=== PATIENT | male | born 1970 | race Two or more races ===

== ENCOUNTER 2017-07-13 02:10 | Emergency (ER) | payer SELFPAY ==
[~2017-07-13] VITALS: Ht 177.8 cm; Wt 68.2 kg
[2017-07-13 02:16] VITALS: BP 118/84
[2017-07-13] MEDS ORDERED: LIDOCAINE 1%, 20ML ONE (02:19)
[2017-07-13] MEDS ORDERED: DIPH,PERTUSS(ACELL),TET VAC/PF 0.5 ML IM-VACC ONE ×3 (02:30→02:46)
[2017-07-13] MEDS ORDERED: BACITRACIN ZINC OINT 500U/GM, 0.9 GM ONE ×2 (02:51→04:32)
== END 2017-07-13 05:33 | disposition home or self-care (01) ==
LOC: ED 05:25
DX: S01.111A Laceration without foreign body of right eyelid and periocular area, initial encounter (principal); S01.511A Laceration without foreign body of lip, initial encounter; S02.2XXA Fracture of nasal bones, initial encounter for closed fracture; S16.1XXA Strain of muscle, fascia and tendon at neck level, initial encounter; F10.220 Alcohol dependence with intoxication, uncomplicated; W19.XXXA Unspecified fall, initial encounter; Y93.89 Activity, other specified; Y99.8 Other external cause status; Y92.89 Other specified places as the place of occurrence of the external cause
CPT/HCPCS: 12054; 36415; 70450; 70486; 71010; 72125; 80307; 90471; 90715; 93005; G0479